=== PATIENT | female | born 1970 | race Caucasian/White ===

== ENCOUNTER 2019-09-06 14:18 | Emergency (ER) | payer OTHER, SELFPAY ==
--- NOTE | 2019-09-06 14:21 | ED.GENADULT ---
HPI - General Adult General Stated complaint: Ear/Nose/Throat Time Seen by Provider: 09/06/19 14:43 Source: patient Mode of arrival: ambulatory Limitations: no limitations History of Present Illness HPI narrative: 49-year-old female patient presents to the [facility] with complaints of laryngitis symptoms . Patient states she has had this twice now for the last month and a half. Patient states that her throat feels a little scratchy but does not feel painful or sore. Patient states she is also had a cough and coughing up some green mucousy stuff that she noticed yesterday. Patient states she does have a little bit of a stuffy nose. Denies any fevers. Denies any chest pain or shortness of breath. Patient states she has had a little bit of a headache. Patient denies any abdominal pain, nausea, vomiting or diarrhea. Patient states that she is an active smoker. Related Data Home Medications Medication Instructions Recorded Confirmed clonidine 09/06/19 Allergies Allergy/AdvReac Type Severity Reaction Status Date / Time cefaclor Allergy Unknown Verified 07/29/18 16:12 cephalexin Allergy Unknown Verified 07/29/18 16:12 Cephalosporins Allergy Unknown Verified 07/29/18 16:13 naproxen Allergy Unknown Verified 07/29/18 16:13 prochlorperazine Allergy Unknown Verified 07/29/18 16:13 CEPHALEXIN MONOHYDRATE Allergy Intermediate Swelling Uncoded 01/19/19 09:05 ALL MUSCLE RELAXERS Allergy Unknown Uncoded 12/28/14 17:12 Review of Systems Review of Systems: Narrative: CONSTITUTIONAL: Denies fever, chills, or sweats. EYES: Denies visual changes, redness, or discharge. ENT: Positive rhinorrhea, congestion, sore throat, denies otalgia. CARDIOVASCULAR: Denies chest pain, palpitations, or edema. RESPIRATORY: Positive cough, denies dyspnea. GASTROINTESTINAL: Denies abdominal pain, nausea, vomiting, or diarrhea. GENITOURINARY: Denies dysuria or hematuria. SKIN: Denies rash or itching. MUSCULOSKELETAL: Denies back pain, joint pain, or myalgia. NEUROLOGIC: Positive headache, denies numbness, or weakness. PSYCHIATRIC: Denies anxiety or depression. [facility] Family History Family History Mother Family history of malignant neoplasm of breast Social History Social History Smoking status: Current every day smoker Comments At the time of my signature I agree with nursing past medical history, surgical, social, and family history. There is no relevant family history pertinent to the presenting complaint. Exam Narrative: Exam Narrative: GENERAL: Well-appearing, well-nourished, and in no acute distress. HEAD: Normocephalic, atraumatic. No tenderness noted to frontal maxillary sinuses on palpation EYES: PERRLA and EOMI. ENT: Nares with erythema and edema noted bilaterally with the right nare swollen shut, no active rhinorrhea or epistaxis. Mucous membranes moist. Posterior pharynx with no erythema, tonsillar margin, exudates or lesions present. Bilateral TMs are clear with no erythema or foreign bodies in the canal. NECK: Supple. No lymphadenopathy CHEST: Clear to auscultation. No respiratory distress. Patient able talk in clear complete sentences. HEART: Regular rate and rhythm. No murmur heard. Normal peripheral pulses. ABDOMEN: Soft, nontender, nondistended, normal active bowel sounds. EXTREMITIES: Normal range of motion. No edema. SKIN: Warm, dry, no rash. NEURO: No focal deficits. Alert and oriented x3. Course Vital Signs Vital signs: Vital Signs Temperature 36.7 C 09/06/19 14:32 Pulse Rate 113 H 09/06/19 14:32 Respiratory Rate 16 09/06/19 14:32 Blood Pressure 136/83 09/06/19 14:32 Pulse Oximetry 98 09/06/19 14:32 Temperature 36.7 C 09/06/19 14:32 Pulse Rate 113 H 09/06/19 14:32 Respiratory Rate 16 09/06/19 14:32 Blood Pressure 136/83 09/06/19 14:32 Pulse Oximetry 98 09/06/19 14:32
[2019-09-06 14:32] VITALS: BP 136/83; PULSE 113; RESP 16; TEMP 36.7; O2SAT 98
== END 2019-09-06 15:04 | disposition home or self-care (01) ==
PROVIDERS: Emergency Provider Nurse Practitioner Family; PCP Family Medicine
DX: J30.9 Allergic rhinitis, unspecified (principal); J04.0 Acute laryngitis; F17.210 Nicotine dependence, cigarettes, uncomplicated
CPT/HCPCS: 99213; G0463

== ENCOUNTER 2019-11-26 14:10 | Emergency (ER) | payer OTHER, SELFPAY ==
--- NOTE | ~2019-11-26 | CT_ITS ---
EXAMINATION: CT abdomen pelvis w con DATE: 11/26/2019 15:08 INDICATION: Abdominal pain. Constipation. TECHNIQUE: Computed tomography (CT) of the abdomen and pelvis was performed with 100 mL Omnipaque 350 intravenous contrast. Automated exposure control and iterative reconstruction technique were employe d. The dose-length product was 329.16 mGy-cm. COMPARISON: CT abdomen and pelvis 01/19/2019 FINDINGS: The visualized portions of the lung bases demonstrate mild atelectasis. No pleural effusion . The heart size is normal. No pericardial effusion. The liver, gallbladder, spleen, pancreas, adrena l glands, and kidneys are normal. There is diverticulosis of the colon without evidence of diverticul itis. The appendix is normal. There is a large volume of stool in the colon with distention of the as cending colon and splenic flexure of the colon. There are no pathologically enlarged lymph nodes. The re is no free intraperitoneal fluid. There is moderate thoracic spondylosis and mild lumbar spondylos is. IMPRESSION: 1. Large volume of stool in the colon with distention of the ascending colon and splenic flexure of t he colon. Reviewed, dictated and finalized at location A. IMPRESSION: 1. Large volume of stool in the colon with distention of the ascending colon an d splenic flexure of the colon.
[2019-11-26 14:09] VITALS: BP 107/62; PULSE 105; RESP 20; TEMP 37.2; O2SAT 99
--- NOTE | 2019-11-26 14:19 | ED.ABDPAIN ---
HPI - Abdominal Pain General Chief Complaint: Abdominal Pain Stated Complaint: ABD PAIN Source: RN notes reviewed History of Present Illness HPI narrative: Patient presents emergency department from home for abdominal pain. Patient states pain began earlier today. The pain is located diffusely throughout the abdomen but worse in the right upper quadrant. Described as sharp and stabbing. Associated with one episode of nausea vomiting denies any fevers or chills chest pain shortness of breath or any other symptoms. States she has had problems with her gallbladder before in the past. States she took no pain medication at home. Patient states she has not been having good bowel movement since 14 November Related Data Home Medications Medication Instructions Recorded Confirmed clonidine 09/06/19 Allergies Allergy/AdvReac Type Severity Reaction Status Date / Time cefaclor Allergy Unknown Verified 07/29/18 16:12 cephalexin Allergy Unknown Verified 07/29/18 16:12 Cephalosporins Allergy Unknown Verified 07/29/18 16:13 naproxen Allergy Unknown Verified 07/29/18 16:13 prochlorperazine Allergy Unknown Verified 07/29/18 16:13 CEPHALEXIN MONOHYDRATE Allergy Intermediate Swelling Uncoded 01/19/19 09:05 ALL MUSCLE RELAXERS Allergy Unknown Uncoded 12/28/14 17:12 Review of Systems Review of Systems: Narrative: Gen.: Denies fevers or chills ENT: Denies congestion Respiratory: Denies shortness of breath or cough CV: Denies chest pain or palpitations GI: See HPI denies burning, urgency, frequency or hematuria Musculoskeletal: Denies back pain or muscle pain Neuro: Denies numbness, tingling, weakness or focal weakness Skin: Denies rash Except as documented, all other systems reviewed and negative [facility] Past Medical History Medical History (Updated 11/26/19 @ 16:22 by Marlon Carlton DO) Patient denies significant medical history Social History Social History Smoking status: Current every day smoker Exam Narrative: Exam Narrative: APPEARANCE: No acute distress, nontoxic, resting in bed HEENT: Normocephalic, atraumatic, OMM RESPIRATORY: No respiratory distress, clear to auscultation bilaterally with no rhonchi wheezing or rales CARDIOVASCULAR: RRR s murmur ABDOMINAL: Soft, nondistended, diffusely tender to palpation with increased tenderness in the right upper quadrant MUSCULOSKELETAl: Moves all extremities. No clubbing, cyanosis or edema. NEURO: Awake and alert. Following commands, speech normal, no focal deficits SKIN:: Warm, dry. Normal Color PSYCHIATRIC: Normal affect/mood Course Course Emergency Course: Patient states that they are feeling much better at this time. States abdominal pain has improved. Repeat abdominal exam shows the patient's abdomen to be soft with no surgical abdomen present discussed with patient results of workup and diagnosis. Discussed need for follow-up with primary care physician, reasons to return to the emergency department in proper use of medication. Patient understands and agrees to current treatment plan Vital Signs Vital signs: Vital Signs Temperature 99 F 11/26/19 14:09 Pulse Rate 105 H 11/26/19 14:09 Respiratory Rate 11/26/19 14:09 Blood Pressure 107/62 11/26/19 14:09 Pulse Oximetry 99 11/26/19 14:09 Temperature 99 F 11/26/19 14:09 Pulse Rate 105 H 11/26/19 14:09 Respiratory Rate 11/26/19 14:09 Blood Pressure 107/62 11/26/19 14:09 Pulse Oximetry 99 11/26/19 14:09 MDM - Abdominal Pain MDM Narrative Medical decision making narrative: Patient's abdomen is soft without significant pain or signs of surgical abdomen on serial exams. Lab and x-ray evaluations are reviewed and patient is felt to be a reasonable candidate for outpatient management. Patient was instructed as to limitations of x-ray and laboratory evaluation and encouraged to return to ED or primary physician for repeat exam i
[2019-11-26 14:28] LABS: Basophils Absolute Auto 0.1 K/mm3 (0.0-0.1); Basophils Percent Auto 0.8 % (0.2-1.2); Eosinophils Absolute Auto 0.2 K/mm3 (0-0.3); Eosinophils Percent Auto 1.7 % (0-4.4); Hematocrit 42.8 % (37.0-47.0); Hemoglobin 14.2 g/dL (12.0-15.0); Immature Granulocyte Absolute 0.04 K/mm3 (0.00-0.031); Immature Granulocyte Percent A 0.3 % (0-0.5); Lymphocytes Absolute Auto 1.34 K/mm3 (0.9-3.2); Lymphocytes Percent Auto 11.7 % (18.3-44.2); Mean Corpuscular HGB Conc 33.2 g/dl (32-36); Mean Corpuscular Hemoglobin 26.2 pg (26-34); Mean Corpuscular Volume 79.1 fl (80-100); Mean Platelet Volume 9.2 fl (7.4-10.4); Monocytes Absolute Auto 0.7 K/mm3 (0.1-0.6); Monocytes Percent Auto 5.8 % (2.6-8.5); Neutrophils Absolute Auto 9.2 K/mm3 (1.3-6.7); Neutrophils Percent Auto 79.7 % (45.5-73.1); Platelet Count Result 303 k/mm3 (150-375); Red Blood Count 5.41 M/mm3 (4.2-5.4); Red Cell Distribution Width 13.2 % (11.5-14.5); White Blood Count 11.5 K/mm3 (4.5-10.0)
[2019-11-26] MEDS: SODIUM CHLORIDE 0.9% IV 1,000 ML 999 ML IV CONT (14:29)
[2019-11-26] MEDS: ONDANSETRON INJ 4 MG/2 ML VIAL IV PUSH (14:29)
[2019-11-26] MEDS: MORPHINE SULFATE 4 MG/ML INJ IV PUSH (14:29)
[2019-11-26 14:38] LABS: Prothrombin Time 12.6 Seconds (11.1-14.7)
[2019-11-26 14:39] LABS: Partial Thromboplastin Time 24.2 SECONDS (22.3-36.8)
[2019-11-26 14:41] LABS: Alanine Aminotransferase 35 U/L (4-35); Albumin Level 4.1 g/dL (3.5-5.1); Alkaline Phosphatase 78 U/L (38-126); Aspartate Amino Transferase 30 U/L (14-36); Bilirubin,Total 0.4 mg/dL (0.2-1.3); Blood Urea Nitrogen 17 mg/dL (7-17); Calcium 9.5 mg/dL (8.4-10.2); Carbon Dioxide 28 mmol/L (22-30); Chloride 101 mmol/L (98-107); Estimated CRCL calculation 96 ml/min; Estimated Glomerular Filt Rate > 60; Glucose 96 mg/dL (65-105); Lipase 53 U/L (23-300); Potassium 3.7 mmol/L (3.4-5.0); Sodium 137 mmol/L (137-145)
[2019-11-26 16:40] VITALS: BP 108/68; PULSE 76; RESP 16; TEMP 36.8; O2SAT 98
== END 2019-11-26 16:42 | disposition home or self-care (01) ==
PROVIDERS: Emergency Provider Emergency Medicine; PCP Family Medicine
DX: K59.00 Constipation, unspecified (principal); F17.200 Nicotine dependence, unspecified, uncomplicated
CPT/HCPCS: 36415; 74177; 80053; 83690; 85025; 85610; 85730; 96361; 96374; 96375; 99284; J2270; J2405; J7030; Q9967

== ENCOUNTER 2020-06-01 12:58 | Outpatient (CLI) | payer OTHER, SELFPAY ==
--- NOTE | ~2020-06-01 | US_ITS ---
EXAMINATION: US abdomen complete DATE: 06/01/2020 13:36 INDICATION: Unspecified abdominal pain TECHNIQUE: Multiple grayscale and Doppler ultrasound images of the abdomen were obtained. COMPARISON: 01/19/2019 FINDINGS: The head and body of the pancreas are normal. The pancreatic tail is obscured by bowel gas. The liver is normal with normal echogenicity and echotexture. No surface nodularity. Normal hepatope tobin flow in the main portal vein. The gallbladder is contracted and contains innumerable stones. Ther e is no gallbladder wall thickening or pericholecystic fluid. The normal common bile duct measures 4 mm. There was no sonographic Richey sign. The visualized portions of the aorta and inferior vena cava are normal. The right kidney measures 9.7 x 3.8 x 4.4 cm. The left kidney measures 10.1 x 5.7 x 5.5 cm. The kidne ys demonstrate normal parenchymal echogenicity. There is no hydronephrosis. The spleen is normal in a ppearance and measures 9.5 cm. IMPRESSION: 1. Cholelithiasis without additional findings of cholecystitis. Reviewed, dictated and finalized at location A. [employer]
== END 2020-06-01 12:59 | disposition home or self-care (01) ==
PROVIDERS: PCP Family Medicine; Visit Provider Family Medicine
DX: R10.9 Unspecified abdominal pain (principal); K80.20 Calculus of gallbladder without cholecystitis without obstruction
CPT/HCPCS: 76700

== ENCOUNTER 2021-07-06 02:58 | Emergency (ER) | payer OTHER, SELFPAY ==
[2021-07-06 02:57] VITALS: BP 108/62; PULSE 94; RESP 16; TEMP 37.1; O2SAT 100
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
== END 2021-07-06 04:39 | disposition home or self-care (01) ==
LOC: ANHED 03:22
PROVIDERS: Emergency Provider Emergency Medicine; PCP Family Medicine
DX: T71.193A Asphyxiation due to mechanical threat to breathing due to other causes, assault, initial encounter (principal); F17.200 Nicotine dependence, unspecified, uncomplicated; I10 Essential (primary) hypertension
CPT/HCPCS: 99282

== ENCOUNTER 2021-10-27 10:03 | Emergency (ER) | payer OTHER, SELFPAY ==
--- NOTE | 2021-10-27 10:08 | PC.NURSE ---
Pt arrived to ED and asked to get into a gown. Pt refusing, stating i don't need to get undressed This RN explains that we need to have her in a gown in order to do tests. Pt continues to argues. I ask male staff to step out. Pt still refusing to change. She asks this RN and tech to leave. I tell her we will step out but we will have to expose her chest in order to do EKG. As we are on the other side of curtain pt yelling that she is recording us. I ask her to stop and tell her that i am not consenting. Pt states this gown is way to big! Im not staying here!! you're all rude Pt came out of room and walked quickly out of the ambulance doors. No vitals were obtained prior to patient leaving
== END 2021-10-27 11:15 | disposition left against medical advice (07) ==
DX: Z53.21 Procedure and treatment not carried out due to patient leaving prior to being seen by health care provider (principal)
CPT/HCPCS: 99199

== ENCOUNTER 2022-02-22 23:54 | Emergency (ER) | payer OTHER, SELFPAY ==
[2022-02-22 23:56] VITALS: BP 142/78; PULSE 105; RESP 16; TEMP 37.2; O2SAT 97
--- NOTE | 2022-02-23 00:03 | ED.URI ---
HPI - URI/Sore Throat General Chief Complaint: Upper Respiratory Infection Stated Complaint: body aches, MCCOLLUM, fever and congestion Time Seen by Provider: 02/23/22 00:03 Source: patient and family Mode of arrival: ambulatory Limitations: no limitations History of Present Illness HPI Narrative: Patient is a 51-year-old presenting for evaluation of myalgias, subjective fever, chills, congestion. Patient states that she has felt unwell over the past 24 hours. Patient reports her significant other had similar symptoms last week and now she seems to have developed these herself. She reports headache, myalgias. She denies frontal chest pain, cough, shortness of breath. She denies sore throat. She denies abdominal pain, nausea, vomiting or diarrhea. Patient has no known history of COVID infection. She is not vaccinated for COVID. Patient has been taking ibuprofen over the course of the day with minimal improvement in her symptoms. Patient has had no difficulty with ambulation. She denies recent fall or injury. She denies dizziness or lightheadedness. Related Data Allergies Allergy/AdvReac Type Severity Reaction Status Date / Time cefaclor Allergy Unknown Swelling Verified 02/23/22 00:08 of Lip/Tongue/Throat cephalexin Allergy Unknown Swelling Verified 02/23/22 00:08 of Lip/Tongue/Throat Cephalosporins Allergy Unknown Swelling Verified 02/23/22 00:08 naproxen Allergy Unknown Swelling Verified 02/23/22 00:08 of Lip/Tongue/Throat prochlorperazine Allergy Unknown Swelling Verified 02/23/22 00:08 CEPHALEXIN MONOHYDRATE Allergy Intermediate Swelling Uncoded 02/23/22 00:08 ALL MUSCLE RELAXERS Allergy Unknown Other Uncoded 02/23/22 00:08 Review of Systems Review of Systems: CONSTITUTIONAL: Reports fever and chills EYES: Denies visual changes, redness, or discharge. ENT: Reports rhinorrhea, congestion, denies sore throat CARDIOVASCULAR: Denies chest pain, palpitations, or edema. RESPIRATORY: Denies cough or dyspnea. GASTROINTESTINAL: Denies abdominal pain, nausea, vomiting, or diarrhea. GENITOURINARY: Denies dysuria or hematuria. SKIN: Denies rash or itching. MUSCULOSKELETAL: Reports myalgias NEUROLOGIC: Reports headache without focal weakness or numbness PMFSH Past Medical History Medical History (Updated 02/23/22 @ 01:10 by Aidee Walker MD) Patient denies significant medical history Family History Family History Mother Family history of malignant neoplasm of breast Social History Social History Smoking status: Current every day smoker Exam Narrative: GENERAL: Awake, alert, conversant HEAD: Normocephalic, atraumatic. EYES: PERRLA and EOMI. ENT: Nares clear, no rhinorrhea or epistaxis. Mucous membranes moist. NECK: Supple. CHEST: No respiratory distress, breathing even and non labored, these are clear to auscultation bilaterally, no wheezing, no rales, no rhonchi HEART: Tachycardic rate, sinus rhythm ABDOMEN:Non distended, non tender EXTREMITIES: Normal range of motion. No edema. SKIN: Warm, dry, no rash. NEURO:No focal deficits. Alert and oriented x3. Patient ambulatory with a narrow base, steady gait, no ataxia. Course Vital Signs Vital signs: Vital Signs Temperature 37.2 C 02/22/22 23:56 Pulse Rate 105 H 02/22/22 23:56 Respiratory Rate 16 02/22/22 23:56 Blood Pressure 142/78 H 02/22/22 23:56 Pulse Oximetry 97 02/22/22 23:56 Oxygen Delivery Room Air 02/22/22 23:56 Temperature 37.2 C 02/22/22 23:56 Pulse Rate 103 H 02/23/22 00:10 Respiratory Rate 15 02/23/22 00:10 Blood Pressure 143/89 H 02/23/22 00:10 Pulse Oximetry 100 02/23/22 00:10 Oxygen Delivery Room Air 02/23/22 00:05 MDM - URI/Sore Throat MDM Narrative Medical decision making narrative: Patient presenting for evaluation of congestion, myalgias. At the time of as
[2022-02-23 00:05] VITALS: O2SAT 99
[2022-02-23 00:10] VITALS: BP 143/89; PULSE 103; RESP 15; O2SAT 100
[2022-02-23] MEDS: ACETAMINOPHEN 500 MG TABLET 1000 MG PO (00:19)
[2022-02-23 00:35] LABS: Basophils Absolute Auto 0.1 K/mm3 (0.0-0.1); Basophils Percent Auto 1.2 % (0.2-1.2); Eosinophils Absolute Auto 0.1 K/mm3 (0-0.3); Eosinophils Percent Auto 1.8 % (0-4.4); Hematocrit 38.8 % (37.0-47.0); Hemoglobin 12.5 g/dL (12.0-15.0); Immature Granulocyte Absolute 0.02 K/mm3 (0.00-0.031); Immature Granulocyte Percent A 0.4 % (0-0.5); Lymphocytes Absolute Auto 0.39 K/mm3 (0.9-3.2); Lymphocytes Percent Auto 7.6 % (18.3-44.2); Mean Corpuscular HGB Conc 32.2 g/dl (32-36); Mean Corpuscular Hemoglobin 26.9 pg (26-34); Mean Corpuscular Volume 83.6 fl (80-100); Mean Platelet Volume 9.3 fl (7.4-10.4); Monocytes Absolute Auto 0.8 K/mm3 (0.1-0.6); Monocytes Percent Auto 14.9 % (2.6-8.5); Neutrophils Absolute Auto 3.8 K/mm3 (1.3-6.7); Neutrophils Percent Auto 74.1 % (45.5-73.1); Platelet Count Result 227 k/mm3 (150-375); Red Blood Count 4.64 M/mm3 (4.2-5.4); Red Cell Distribution Width 13.7 % (11.5-14.5); White Blood Count 5.1 K/mm3 (4.5-10.0)
[2022-02-23 00:46] LABS: Anion Gap 4 mmol/L (8-16); Blood Urea Nitrogen 14 mg/dL (7-17); Calcium 8.2 mg/dL (8.4-10.2); Carbon Dioxide 25 mmol/L (22-30); Chloride 104 mmol/L (98-107); Estimated CRCL calculation 80 ml/min; Estimated Glomerular Filt Rate > 60; Glucose 94 mg/dL (65-110); Sodium 133 mmol/L (137-145)
[2022-02-23 00:58] LABS: Influenza A QL RT-PCR Negative (Negative); Influenza B QL RT-PCR Negative (Negative); SARS-CoV-2 RNA PCR Positive
--- NOTE | 2022-02-23 01:08 | PC.NURSE ---
pt standing outside nurses station stating i just need some test results and you all are sitting here having happy hour pt visibly upset. EDP aware. Pt escorted back to room. Pt instructed of positive covid test. Pt instructed to keep mask on face.
== END 2022-02-23 01:12 | disposition home or self-care (01) ==
PROVIDERS: Nurse Practitioner Family; Emergency Provider Emergency Medicine
DX: U07.1 COVID-19 (principal); Z28.310 Unvaccinated for COVID-19; F17.200 Nicotine dependence, unspecified, uncomplicated
CPT/HCPCS: 36415; 80048; 85025; 87502; 99283; A9270; C9803; U0003; U0005

== ENCOUNTER 2022-10-26 02:22 | Emergency (ER) | payer OTHER, SELFPAY ==
--- NOTE | ~2022-10-26 | CT_ITS ---
EXAMINATION: CT abdomen pelvis wo con DATE: 10/26/2022 03:31 INDICATION: Right flank pain. TECHNIQUE: Computed tomography (CT) of the abdomen and pelvis was performed without intravenous contr ast. Automated exposure control and iterative reconstruction technique were employed. The dose-length product was 627.53 mGy-cm. COMPARISON: CT abdomen and pelvis 11/26/2019 FINDINGS: The visualized portions of the lung bases demonstrate mild atelectasis. No pleural effusion . The heart size is normal. No pericardial effusion. The liver, gallbladder, spleen, pancreas, adrena l glands, and kidneys are normal. There is no urolithiasis. There is diverticulosis of the colon with out evidence of diverticulitis. There is distention of the proximal colon, likely adynamic ileus. The appendix is normal. There is an umbilical hernia containing fat. There is mild aortic atherosclerosi s. There are no pathologically enlarged lymph nodes. There is no free intraperitoneal fluid. There is severe thoracic spondylosis and mild lumbar spondylosis. IMPRESSION: 1. No urolithiasis. 2. Distention of the proximal colon, likely adynamic ileus. 3. Umbilical hernia containing fat. Reviewed, dictated and finalized at location A.
[2022-10-26 02:23] VITALS: BP 143/97; PULSE 90; RESP 15; TEMP 36.6; O2SAT 100
--- NOTE | 2022-10-26 02:38 | PC.NURSE ---
Pt not cooperating with assessment, pt is anxious and states her pain is too severe to cooperate. Pt refuses to let this RN assess her abdomen.
[2022-10-26 02:50] LABS: Basophils Absolute Auto 0.1 K/mm3 (0.0-0.1); Basophils Percent Auto 0.9 % (0.2-1.2); Eosinophils Absolute Auto 0.1 K/mm3 (0-0.3); Eosinophils Percent Auto 1.1 % (0-4.4); Hematocrit 43.8 % (37.0-47.0); Hemoglobin 14.2 g/dL (12.0-15.0); Immature Granulocyte Absolute 0.03 K/mm3 (0.00-0.031); Immature Granulocyte Percent A 0.3 % (0-0.5); Lymphocytes Absolute Auto 1.64 K/mm3 (0.9-3.2); Lymphocytes Percent Auto 14.6 % (18.3-44.2); Mean Corpuscular HGB Conc 32.4 g/dl (32-36); Mean Corpuscular Hemoglobin 26.8 pg (26-34); Mean Corpuscular Volume 82.6 fl (80-100); Mean Platelet Volume 9.2 fl (7.4-10.4); Monocytes Absolute Auto 0.7 K/mm3 (0.1-0.6); Neutrophils Absolute Auto 8.6 K/mm3 (1.3-6.7); Neutrophils Percent Auto 77.1 % (45.5-73.1); Platelet Count Result 305 k/mm3 (150-375); Red Cell Distribution Width 14.3 % (11.5-14.5); White Blood Count 11.2 K/mm3 (4.5-10.0)
[2022-10-26 02:52] LABS: Appearance Urine Clear (Clear); Bilirubin Urine Negative (Negative); Blood Urine Negative (Negative); Color Urine Yellow (Yellow); Glucose Urine UA Negative (Negative); Ketones Urine Trace mg/dL (Negative); Leukocyte Esterase Ur Negative LEU/UL (Negative); Nitrate Urine Negative (Negative); Protein Urine Negative (Negative); Specific Grav Ur 1.023 (1.001-1.035); Urobilinogen Urine 0.2 mg/dL (<2.0); pH Urine 7.5 (5.0-9.0)
[2022-10-26] MEDS: MORPHINE SULFATE (*CRX) 4 MG/ML INJ IV PUSH (02:53)
[2022-10-26] MEDS: ONDANSETRON INJ 4 MG/2 ML VIAL IV PUSH (02:53)
[2022-10-26] MEDS: SODIUM CHLORIDE 0.9% IV 1,000 ML 999 ML IV CONT (02:54)
[2022-10-26 03:01] LABS: Lactic Acid Reflex 1.1 mmol/L (0.7-2.0)
[2022-10-26 03:03] LABS: Alanine Aminotransferase 22 U/L (6-35); Albumin Level 4.7 g/dL (3.5-5.1); Alkaline Phosphatase 100 U/L (38-126); Anion Gap 4 mmol/L (8-16); Aspartate Amino Transferase 24 U/L (14-36); Bilirubin,Total 0.4 mg/dL (0.2-1.3); Blood Urea Nitrogen 16 mg/dL (7-17); Calcium 9.4 mg/dL (8.4-10.2); Carbon Dioxide 35 mmol/L (22-30); Chloride 98 mmol/L (98-107); Estimated CRCL calculation 98 ml/min; Estimated Glomerular Filt Rate > 60; Glucose 121 mg/dL (65-110); Potassium 4.3 mmol/L (3.4-5.0); Sodium 137 mmol/L (137-145)
[2022-10-26 03:07] LABS: Add Urine Microscopic? NO
--- NOTE | 2022-10-26 03:24 | ED.GENADULT ---
HPI - General Adult General Chief complaint: Abdominal Pain Stated complaint: abd pain Time Seen by Provider: 10/26/22 02:26 History of Present Illness HPI narrative: Patient 52-year-old female who presents the emergency department with chief complaint of abdominal pain. The patient reports that she been having a sharp type pain in her right flank and her abdomen has been ongoing for several days the patient reports the pain is not improved by anything and reports that its not worsened by anything and cannot does its own thing patient reports he is unable to get comfortable in any position reports she has nausea patient reports that she has been several days since she had a bowel movement. Related Data Allergies Allergy/AdvReac Type Severity Reaction Status Date / Time cefaclor Allergy Unknown Swelling Verified 02/23/22 00:08 of Lip/Tongue/Throat cephalexin Allergy Unknown Swelling Verified 02/23/22 00:08 of Lip/Tongue/Throat Cephalosporins Allergy Unknown Swelling Verified 02/23/22 00:08 naproxen Allergy Unknown Swelling Verified 02/23/22 00:08 of Lip/Tongue/Throat prochlorperazine Allergy Unknown Swelling Verified 02/23/22 00:08 CEPHALEXIN MONOHYDRATE Allergy Intermediate Swelling Uncoded 02/23/22 00:08 ALL MUSCLE RELAXERS Allergy Unknown Other Uncoded 02/23/22 00:08 Review of Systems Review of Systems: A 10 system review of systems was completed on the patient and is negative except for what is stated in the HPI. Nursing and ancillary documentation was reviewed. PMFSH Past Medical History Medical History Patient denies significant medical history Family History Family History Mother Family history of malignant neoplasm of breast Social History Social History Smoking status: Current every day smoker Exam Narrative: GENERAL: Well-appearing, well-nourished, and in moderate acute pain distress. HEAD: Normocephalic, atraumatic. EYES: PERRLA and EOMI. ENT: Nares clear, no rhinorrhea or epistaxis. Mucous membranes moist. NECK: Supple. CHEST: Clear to auscultation. No respiratory distress. HEART: Regular rate and rhythm. No murmur heard. Normal peripheral pulses. ABDOMEN: Soft, nontender, nondistended, normal active bowel sounds. EXTREMITIES: Normal range of motion. No edema. SKIN: Warm, dry, no rash. NEURO: No focal deficits. Alert and oriented x3. PSYCH: Normal mood and affect. Course Vital Signs Vital signs: Vital Signs Temperature 36.6 C 10/26/22 02:23 Pulse Rate 90 10/26/22 02:23 Respiratory Rate 15 10/26/22 02:23 Blood Pressure 143/97 H 10/26/22 02:23 Pulse Oximetry 100 10/26/22 02:23 Temperature 36.6 C 10/26/22 02:23 Pulse Rate 90 10/26/22 02:23 Respiratory Rate 15 10/26/22 02:23 Blood Pressure 143/97 H 10/26/22 02:23 Pulse Oximetry 100 10/26/22 02:23 Medical Decision Making MDM Narrative Medical decision making narrative: Differential diagnosis includes bowel obstruction, fecal impaction, gastroenteritis, diverticulitis, nephrolithiasis, cholecystitis appendicitis Laboratory studies were obtained which showed a white count of 11.2 electrolytes were within normal limits liver enzymes were normal lactate was normal urinalysis showed no evidence of UTI CT scan of the abdomen pelvis showed no acute abnormality the patient did have diverticulosis without diverticulitis The patient is feeling better the CT scan was reviewed by me personally she did appear to have a large amount of stool of which she will be given a dose of magnesium citrate and the patient will be discharged home on Bentyl and Zofran Vital Signs Vital Signs: Vital Signs Temperature 36.6 C 10/26/22 02:23 Pulse Rate 90 10/26/22 02:23 Respiratory Rate 10/12
[2022-10-26 06:25] VITALS: BP 136/82; PULSE 96; RESP 15; O2SAT 98
[2022-10-26] MEDS: MAGNESIUM CITRATE 300 ML BTL PO (06:26)
== END 2022-10-26 06:37 | disposition home or self-care (01) ==
PROVIDERS: Emergency Provider Emergency Medicine
DX: K57.90 Diverticulosis of intestine, part unspecified, without perforation or abscess without bleeding (principal); F17.200 Nicotine dependence, unspecified, uncomplicated; K42.9 Umbilical hernia without obstruction or gangrene; R93.3 Abnormal findings on diagnostic imaging of other parts of digestive tract
CPT/HCPCS: 36415; 74176; 80053; 81003; 83605; 85025; 96361; 96374; 96375; 99284; A9270; J2270; J2405; J7030

== ENCOUNTER 2023-03-01 15:21 | Emergency (ER) | payer OTHER, SELFPAY ==
[2023-03-01 15:23] VITALS: BP 135/82; PULSE 99; RESP 20; TEMP 36.5; O2SAT 99
--- NOTE | 2023-03-01 15:39 | PC.NURSE ---
Pt approached intake desk and states This is humiliating and walked out of ER to car. Steady gait. Did not notify RN decided to not be seen.
[2023-03-01 15:41] LABS: Basophils Absolute Auto 0.1 K/mm3 (0.0-0.1); Eosinophils Absolute Auto 0.3 K/mm3 (0-0.3); Eosinophils Percent Auto 2.5 % (0-4.4); Hematocrit 44.5 % (37.0-47.0); Hemoglobin 14.1 g/dL (12.0-15.0); Immature Granulocyte Absolute 0.03 K/mm3 (0.00-0.031); Immature Granulocyte Percent A 0.3 % (0-0.5); Lymphocytes Absolute Auto 1.77 K/mm3 (0.9-3.2); Lymphocytes Percent Auto 16.7 % (18.3-44.2); Mean Corpuscular HGB Conc 31.7 g/dl (32-36); Mean Corpuscular Hemoglobin 26.9 pg (26-34); Mean Corpuscular Volume 84.9 fl (80-100); Mean Platelet Volume 9.2 fl (7.4-10.4); Monocytes Absolute Auto 0.7 K/mm3 (0.1-0.6); Monocytes Percent Auto 6.6 % (2.6-8.5); Neutrophils Absolute Auto 7.7 K/mm3 (1.3-6.7); Neutrophils Percent Auto 72.9 % (45.5-73.1); Platelet Count Result 307 k/mm3 (150-375); Red Blood Count 5.24 M/mm3 (4.2-5.4); Red Cell Distribution Width 13.4 % (11.5-14.5); White Blood Count 10.6 K/mm3 (4.5-10.0)
[2023-03-01 15:52] LABS: Alanine Aminotransferase 15 U/L (6-35); Albumin Level 4.4 g/dL (3.5-5.1); Alkaline Phosphatase 76 U/L (38-126); Anion Gap 4 mmol/L (8-16); Aspartate Amino Transferase 23 U/L (14-36); Bilirubin,Total 0.4 mg/dL (0.2-1.3); Blood Urea Nitrogen 14 mg/dL (7-17); Calcium 9.1 mg/dL (8.4-10.2); Carbon Dioxide 31 mmol/L (22-30); Chloride 103 mmol/L (98-107); Estimated CRCL calculation 79 ml/min; Estimated Glomerular Filt Rate > 60; Glucose 64 mg/dL (65-110); Lipase 59 U/L (23-300); Potassium 3.9 mmol/L (3.4-5.0); Sodium 138 mmol/L (137-145)
== END 2023-03-01 15:37 | disposition left against medical advice (07) ==
LOC: ANHED 15:42
PROVIDERS: Emergency Provider Emergency Medicine
DX: R10.9 Unspecified abdominal pain (principal)
CPT/HCPCS: 36415; 80053; 83690; 85025; 99199